=== PATIENT | female | born 1955 | race Hispanic/Latino ===

== ENCOUNTER → 2017-10-30 | Outpatient (CLI) | payer BC ==
[~2017-10-30] MED LIST: ALBU6.7H IH; AUD IH; CELE200 PO; CHOL500051 PO; DOCU100C33 PO; DULO60CA63 PO; FLUT1AER IH; FOLI1TAB15 PO; GUAI100S13 PO; LACT10SO PO; LEVO200T10 PO; LEVO25TA54 PO; LISI-613 PO; MONT10TA21 PO; PANT40TA25 PO; TRAM50TA4 PO; breo; mucinex; proventil
== END ==
LOC: RAH 10:12
PROVIDERS: ATTEND Internal Medicine Gastroenterology
DX: R14.0 Abdominal distension (gaseous) (principal); R11.2 Nausea with vomiting, unspecified
CPT/HCPCS: 78264; A9541

== ENCOUNTER → 2018-09-26 | Outpatient (CLI) | payer BC | END | disposition home or self-care (01) | LOC: RAH 07:39 | PROVIDERS: ATTEND Internal Medicine Gastroenterology | DX: K57.10 Diverticulosis of small intestine without perforation or abscess without bleeding (principal); K21.9 Gastro-esophageal reflux disease without esophagitis; K44.9 Diaphragmatic hernia without obstruction or gangrene | CPT/HCPCS: 74240; 76700 ==

== ENCOUNTER 2018-10-31 20:44 | Emergency (ER) | payer BC ==
[2018-10-31 21:10] LABS: EOSINOPHILS % (AUTO) 2.1 % (0.0-8.0); HEMATOCRIT 39.2 % (36-48); MEAN CORPUSCULAR HEMOGLOBIN 31.7 pg (27.0-33.0); MEAN CORPUSCULAR HGB CONC 33.8 g/dL (32.0-36.0); MEAN CORPUSCULAR VOLUME 93.9 fL (79-99); MONOCYTES % (AUTO) 10.5 % (3.0-13.0); NEUTROPHILS % (AUTO) 64.4 % (40.0-77.0); NUCLEATED RED BLOOD CELLS 0.1 % (0.0-0.19); PLATELET COUNT (AUTO) 170 K/uL (130-400); RED BLOOD CELL COUNT(AUTO) 4.17 MIL/uL (4.00-5.50); RED CELL DISTRIBUTION WIDTH 14.2 % (11.0-15.5); WHITE BLOOD COUNT (AUTO) 5.5 K/uL (4.8-10.8)
[2018-10-31 21:19] LABS: CREATININE 1.1 mg/dL (0.5-1.5); POTASSIUM 3.9 mmol/L (3.5-5.1)
[2018-10-31 21:22] LABS: INR 0.93 (0.85-1.15); PARTIAL THROMBOPLASTIN TIME 27.5 SEC (26.3-35.5); PROTHROMBIN TIME 9.8 SEC (9.6-11.6)
[2018-10-31 21:30] LABS: ALBUMIN 3.9 g/dL (3.5-5.0); BILIRUBIN,TOTAL 0.3 mg/dL (0.2-1.0); TOTAL PROTEIN, SERUM 7.2 g/dL (6.0-8.3)
[2018-10-31] MEDS ORDERED: NITROGLYCERIN 1GM/1 INCH PACKET TD ONE (22:12)
[2018-10-31] MEDS ORDERED: ONDANSETRON HCL 4 MG/2 ML VIAL ONE (22:52)
[2018-10-31] MEDS ORDERED: HYDROMORPHONE 1 MG/1 ML AMP ONE (22:53)
== END 2018-11-01 01:33 | disposition home or self-care (01) ==
LOC: EDH 20:44
DX: R07.89 Other chest pain (principal); R51 Headache; M32.9 Systemic lupus erythematosus, unspecified; E03.9 Hypothyroidism, unspecified; J45.909 Unspecified asthma, uncomplicated; M19.90 Unspecified osteoarthritis, unspecified site; Z88.6 Allergy status to analgesic agent
CPT/HCPCS: 36415; 70450; 71045; 80053; 82550; 83874; 84484 ×2; 85025; 85610; 85730; 93005 ×2; 96374; 96375; 99285; J1170; J2405

== ENCOUNTER 2021-02-21 19:30 | Emergency (ER) | payer BC, MEDICARE ==
[~2021-02-21] VITALS: Ht 152.4 cm; Wt 90.7 kg
[~2021-02-21 19:30] MED LIST changes: -ALBU6.7H IH; +ALBU6.7H9 IH; -DULO60CA63 PO; +DULO60CA64 PO; -LACT10SO PO; +LACT10SO5 PO; -LISI-613 PO; +LISI20TA24 PO; -PANT40TA25 PO; +PANT40TA55 PO
[2021-02-21 19:48] VITALS: BP 170/67
[2021-02-21 19:53] LABS: BASOPHILS % (AUTO) 0.6 % (0.0-5.0); EOSINOPHILS % (AUTO) 1.8 % (0.0-8.0); HEMATOCRIT 39.8 % (36-48); LYMPHOCYTES % (AUTO) 30.8 % (21.0-51.0); MEAN CORPUSCULAR HEMOGLOBIN 30.3 pg (27.0-33.0); MEAN CORPUSCULAR HGB CONC 33.4 g/dL (32.0-36.0); MEAN CORPUSCULAR VOLUME 90.7 fL (79-99); MONOCYTES % (AUTO) 6.5 % (3.0-13.0); NEUTROPHILS % (AUTO) 59.9 % (40.0-77.0); PLATELET COUNT (AUTO) 173 K/uL (130-400); RED BLOOD CELL COUNT(AUTO) 4.39 MIL/uL (4.00-5.50); RED CELL DISTRIBUTION WIDTH 12.6 % (11.0-15.5); WHITE BLOOD COUNT (AUTO) 7.1 K/uL (4.8-10.8)
[2021-02-21 20:07] LABS: CARBON DIOXIDE 28 mmol/L (21-32); CHLORIDE 104 mmol/L (101-111); GLOMERULAR FILTR. RATE CALC 59 mL/min (>60); GLUCOSE,RANDOM 112 mg/dL (70-105); POTASSIUM 3.7 mmol/L (3.5-5.1); SODIUM SERUM 142 mmol/L (136-145); UREA NITROGEN, BLOOD 18 mg/dL (7-18)
[2021-02-21 20:21] LABS: ALANINE AMINOTRANSFERASE 28 U/L (12-78); ALBUMIN 4.1 g/dL (3.5-5.0); ASPARTATE AMINOTRANSFERASE 24 U/L (10-37); BILIRUBIN,TOTAL 0.4 mg/dL (0.2-1.0); CREATINE KINASE, TOTAL 143 U/L (21-232); MYOGLOBIN 40 ng/mL (10-92); TOTAL PROTEIN, SERUM 7.8 g/dL (6.0-8.3); TROPONIN I < 0.04 ng/mL (0.00-0.06)
[2021-02-21] MEDS ORDERED: LIDOCAINE HCL 2% VISCOUS 15 ML UDCUP PO ONE (20:45)
[2021-02-21] MEDS ORDERED: MAG HYDROX/AL HYDROX/SIMETH ES 30 ML SUSP UDCUP PO ONE (20:45)
[2021-02-21] MEDS ORDERED: FAMOTIDINE 20MG TAB 20 MG TAB PO ONE (20:45)
[2021-02-21 20:49] LABS: APPEARANCE,URINE Clear (CLEAR); BILIRUBIN,URINE Negative (NEGATIVE); COLOR,URINE Yellow (YELLOW); GLUCOSE, URINE (UA) Negative (NEGATIVE); KETONES,URINE Trace mg/dL (NEGATIVE); LEUKOCYTE ESTERASE ,URINE Trace (NEGATIVE); NITRATE,URINE Negative (NEGATIVE); OCCULT BLOOD,URINE Negative (NEGATIVE); PROTEIN,URINE Negative (NEGATIVE)
[2021-02-21 20:59] LABS: BACTERIA,URINE Rare /HPF (None Seen); RBC,URINE 0-1 /HPF (0-1); SQUAMOUS EPITHELIAL CELL,UR Rare /HPF (0-2)
[2021-02-21 21:00] LABS: MUCUS,URINE Rare LPF (None Seen)
[2021-02-21] MEDS ORDERED: IOHEXOL-350 75 ML VIAL IV ONE (22:19)
[2021-02-21 22:24] VITALS: BP 143/109
[2021-02-21 23:48] VITALS: BP 138/98
== END 2021-02-21 23:40 | disposition home or self-care (01) ==
LOC: EDH 19:30
DX: K29.70 Gastritis, unspecified, without bleeding (principal); R13.10 Dysphagia, unspecified; R07.89 Other chest pain; F41.9 Anxiety disorder, unspecified; K21.9 Gastro-esophageal reflux disease without esophagitis; E11.9 Type 2 diabetes mellitus without complications; E78.5 Hyperlipidemia, unspecified; I10 Essential (primary) hypertension; E66.9 Obesity, unspecified; Z88.5 Allergy status to narcotic agent; Z79.899 Other long term (current) drug therapy; Z79.1 Long term (current) use of non-steroidal anti-inflammatories (NSAID); Z79.51 Long term (current) use of inhaled steroids
CPT/HCPCS: 36415; 71045; 71260; 80053; 81001; 82550; 83690; 83874; 84484; 85025; 93005; 99285; Q9967

== ENCOUNTER → 2023-01-19 | Outpatient (CLI) | payer MEDICARE ==
[~2023-01-19] MED LIST changes: +ALBU6.7H14 IH; -ALBU6.7H9 IH; +MONT-46 PO; -MONT10TA21 PO
== END | disposition home or self-care (01) ==
LOC: SHCH 09:01
PROVIDERS: ATTEND Internal Medicine Cardiovascular Disease
DX: I87.2 Venous insufficiency (chronic) (peripheral) (principal); I87.1 Compression of vein
CPT/HCPCS: 93970

== ENCOUNTER → 2023-01-30 | Outpatient (CLI) | payer MEDICARE | END | disposition home or self-care (01) | LOC: RAH 14:00 | PROVIDERS: ATTEND Internal Medicine Critical Care Medicine | DX: I27.0 Primary pulmonary hypertension (principal) | CPT/HCPCS: 78580; 71046; A9540 ==

== ENCOUNTER 2025-07-13 16:24 | Emergency (ER) | payer MEDICARE ==
[~2025-07-13] VITALS: Ht 152.4 cm; Wt 83.9 kg
[~2025-07-13 16:24] MED LIST changes: +LACT-441 PO; -LACT10SO5 PO
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
[2025-07-13 17:03] LABS: IMMATURE GRANULOCYTE ABSOLUTE 0.02 K/uL (0-1); NUCLEATED RED BLOOD CELLS 0.0 % (0.0-0.19); PLATELET COUNT (AUTO) 222 K/uL (130-400); RED BLOOD CELL COUNT(AUTO) 4.25 MIL/uL (4.00-5.50); RED CELL DISTRIBUTION WIDTH 13.0 % (11.0-15.5); WHITE BLOOD COUNT (AUTO) 5.9 K/uL (4.8-10.8)
[2025-07-13 17:12] LABS: CREATININE 0.9 mg/dL (0.5-1.0); GLOMERULAR FILTR. RATE CALC 69.0 mL/min (>90); GLUCOSE,RANDOM 219.0 mg/dL (70-105); SODIUM SERUM 137.0 mmol/L (136-145); UREA NITROGEN, BLOOD 16.0 mg/dL (7-18)
--- NOTE | 2025-07-13 18:51 | NUR ---
PT PLACED IN ER 14 NOW.
[2025-07-13 19:00] VITALS: RESP 55
--- NOTE | 2025-07-13 19:04 | EKG ---
[facility] Test Date: 2025-07-13 Test Time: 16:40:31 Pat Name: APARNA BIGGS Department: [facility] Room: Gender: F [employer] Department Chair: [id number] : 1955 Requested By: VEGA PADRON Order Number: [id number] Reading MD: Sharon Hampton Measurements Intervals [place] Rate: 84 P: 61 DC: 159 QRS: -45 QRSD: 106 T: 110 QT: 376 QTc: 443 Interpretive Statements Sinus rhythm Probable left atrial enlargement Incomplete RBBB and LAFB Probable lateral infarct, age indeterminate Compared to ECG 02/21/2021 19:35:40 Left anterior fascicular block now present Incomplete right bundle-branch block now present Right bundle-branch block now present Right superior axis no longer present Myocardial infarct finding still present Electronically Signed On 07-15-2025 12:36:25 JANITOR CARETAKER by Sharon Hampton Please click the below link to view image of tracing.
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
[2025-07-13] MEDS: SUCRALFATE 1 GM/10 ML PO ONE (19:31)
[2025-07-13] MEDS: MAG/ALUM/SIMETH 30 ML UDCUP PO ONE (19:31)
[2025-07-13] MEDS: DICYCLOMINE HCL 10 MG/5 ML ML PO ONE (19:31)
[2025-07-13] MEDS: FAMOTIDINE 20MG VIAL IV ONE (19:31)
[2025-07-13] MEDS: LIDOCAINE HCL 2% VISCOUS 15 ML UDCUP PO ONE (19:32)
[2025-07-13 20:13] VITALS: BP 116/46; PULSE 98; TEMP 98; O2SAT 98
== END 2025-07-13 21:20 | disposition home or self-care (01) ==
LOC: EDH 16:24
DX: K21.9 Gastro-esophageal reflux disease without esophagitis (principal); K29.70 Gastritis, unspecified, without bleeding; E11.65 Type 2 diabetes mellitus with hyperglycemia; I10 Essential (primary) hypertension; E03.9 Hypothyroidism, unspecified; Z79.51 Long term (current) use of inhaled steroids; Z79.890 Hormone replacement therapy; Z79.899 Other long term (current) drug therapy; Z88.5 Allergy status to narcotic agent; Z90.710 Acquired absence of both cervix and uterus; Z91.030 Bee allergy status
CPT/HCPCS: 99285; 96374; 71045; 84484; 80048; 83690; 85025; 36415; 93005; J1308

== ENCOUNTER 2025-07-29 06:00 | Day surgery (SDC) | payer MEDICARE ==
[2025-07-29] VITALS (10 sets, daily range): BP systolic 108–142; BP diastolic 52–62; PULSE 66–70; RESP 12–18; TEMP 97.2–97.9
[~2025-07-29] VITALS: Ht 152.4 cm; Wt 84.4 kg
[~2025-07-29 06:00] MED LIST changes: -ALBU6.7H14 IH; -AUD IH; +BUSP10TA3 PO; -CELE200 PO; +CLON0.2T PO; -DULO60CA64 PO; -FLUT1AER IH; -FOLI1TAB15 PO; -GUAI100S13 PO; -LACT-441 PO; +LEVO112C5 PO; -LEVO200T10 PO; -LEVO25TA54 PO; -LISI20TA24 PO; +METF-444 PO; +METO25TA6 PO; -TRAM50TA4 PO; -breo; -mucinex; -proventil
[2025-07-29] MEDS ORDERED: FELO10TA46 PO (06:52)
[2025-07-29] MEDS ORDERED: CAND32TA22 PO (06:52)
[2025-07-29] MEDS ORDERED: ATOR10 PO (06:53)
[2025-07-29] MEDS: 0.9%NACL 1000ML 1,000 ML IV ONE (06:55)
--- NOTE | 2025-07-29 09:26 | NUR ---
Full and complete discharge instructions given to Patient and Family both verbally and in writing. Tolerated fluids and voided in bathroom. PIV removed with catheter tip intact. W/C to POV with Family to home.
== END 2025-07-29 09:30 | disposition home or self-care (01) ==
LOC: DAH 06:00 → ENDO 06:00
PROVIDERS: ATTEND Internal Medicine Gastroenterology
DX: K59.01 Slow transit constipation (principal); D12.2 Benign neoplasm of ascending colon; K29.70 Gastritis, unspecified, without bleeding; K57.30 Diverticulosis of large intestine without perforation or abscess without bleeding; K21.9 Gastro-esophageal reflux disease without esophagitis; K31.89 Other diseases of stomach and duodenum; I25.10 Atherosclerotic heart disease of native coronary artery without angina pectoris; M32.10 Systemic lupus erythematosus, organ or system involvement unspecified; K44.9 Diaphragmatic hernia without obstruction or gangrene; I25.2 Old myocardial infarction; J45.909 Unspecified asthma, uncomplicated; R07.89 Other chest pain; I10 Essential (primary) hypertension; E03.9 Hypothyroidism, unspecified; E11.9 Type 2 diabetes mellitus without complications; Z88.5 Allergy status to narcotic agent; Z86.0101 Personal history of adenomatous and serrated colon polyps; Z86.0100 Personal history of colon polyps, unspecified; Z90.710 Acquired absence of both cervix and uterus; Z98.890 Other specified postprocedural states; Z79.899 Other long term (current) drug therapy
CPT/HCPCS: 82948 ×2; 43239; 45385; J7030 ×2; J3490; J2704 ×2; J2371; A4620; A4215 ×2; A4223; A7002; A4222; A4221; A4663; A4606